=== PATIENT | female | born 1955 | race Caucasian/White ===

== ENCOUNTER → 2021-03-03 | Outpatient (CLI) | payer OTHER, MEDICARE | LOC: M.ULTRA 14:59 → M.RAD 14:59 → M.ULTRA 15:00 | PROVIDERS: ATTEND Internal Medicine | DX: M51.36 Other intervertebral disc degeneration, lumbar region (principal); M25.78 Osteophyte, vertebrae; M47.817 Spondylosis without myelopathy or radiculopathy, lumbosacral region; M25.551 Pain in right hip; M79.604 Pain in right leg; M54.5 Low back pain ==